=== PATIENT | male | born 1995 | race Caucasian/White ===

== ENCOUNTER 2017-10-27 15:28 | Emergency (ER) | payer OTHER ==
[~2017-10-27] VITALS: Ht 170.2 cm; Wt 68.9 kg
== END 2017-10-27 18:05 | disposition home or self-care (01) ==
LOC: ER 15:28
DX: S61.210A Laceration without foreign body of right index finger without damage to nail, initial encounter (principal); W26.0XXA Contact with knife, initial encounter; Y93.89 Activity, other specified; Y92.098 Other place in other non-institutional residence as the place of occurrence of the external cause; Y99.8 Other external cause status

== ENCOUNTER → 2018-12-10 | Emergency (ER) | payer OTHER ==
[~2018-12-10] VITALS: Ht 170.2 cm; Wt 65.8 kg
[~2018-12-10] MED LIST: PEPCID40 MG PO; ZOFRAN4 MG PO
== END | disposition home or self-care (01) ==
LOC: ER 23:15
DX: K52.89 Other specified noninfective gastroenteritis and colitis (principal)

== ENCOUNTER 2018-12-24 20:05 | Emergency (ER) | payer OTHER ==
[~2018-12-24] VITALS: Ht 170.2 cm; Wt 69.4 kg
[~2018-12-24 20:05] MED LIST changes: -KETO10TA2 PO
[2018-12-25] MEDS ORDERED: KETO10TA2 PO (03:26)
== END 2018-12-25 03:30 | disposition home or self-care (01) ==
LOC: ER 20:05
DX: N21.1 Calculus in urethra (principal); R10.31 Right lower quadrant pain

== ENCOUNTER → 2018-12-24 | Emergency (ER) | payer OTHER ==
[~2018-12-24] VITALS: Ht 170.2 cm; Wt 69.9 kg
[~2018-12-24] MED LIST changes: +KETO10TA2 PO
== END | disposition home or self-care (01) ==
LOC: ER 10:12
DX: K52.9 Noninfective gastroenteritis and colitis, unspecified (principal); E86.0 Dehydration; R10.84 Generalized abdominal pain

== ENCOUNTER 2019-03-11 21:30 | Emergency (ER) | payer OTHER ==
[~2019-03-11] VITALS: Ht 170.2 cm; Wt 65.8 kg
[~2019-03-11 21:30] MED LIST changes: +KETO10TA2 PO
== END 2019-03-12 02:53 | disposition home or self-care (01) ==
LOC: ER 21:30
DX: B34.9 Viral infection, unspecified (principal); K52.9 Noninfective gastroenteritis and colitis, unspecified

== ENCOUNTER 2019-12-29 21:34 | Emergency (ER) | payer OTHER ==
[~2019-12-29] VITALS: Ht 172.7 cm; Wt 67.6 kg
[2019-12-29] MEDS ORDERED: NORFLEX100MG PO (22:51)
[2019-12-29] MEDS ORDERED: DICLOFENAC SODI75 MG PO (22:51)
== END 2019-12-29 23:12 | disposition home or self-care (01) ==
LOC: ER 21:34
DX: S30.0XXA Contusion of lower back and pelvis, initial encounter (principal); M54.5 Low back pain; W18.09XA Striking against other object with subsequent fall, initial encounter; Y93.89 Activity, other specified; Y92.69 Other specified industrial and construction area as the place of occurrence of the external cause; Y99.8 Other external cause status

== ENCOUNTER 2021-02-03 22:43 | Emergency (ER) | payer OTHER ==
[~2021-02-03] VITALS: Ht 170.2 cm; Wt 69.9 kg
[~2021-02-03 22:43] MED LIST changes: +DICLOFENAC SODI75 MG PO; +NORFLEX100MG PO
[2021-02-04] MEDS ORDERED: PROTONIX40 MG PO (01:03)
[2021-02-04] MEDS ORDERED: PEPCID40 MG PO (01:03)
== END 2021-02-04 01:15 | disposition home or self-care (01) ==
LOC: ER 22:43
DX: R10.9 Unspecified abdominal pain (principal); K29.70 Gastritis, unspecified, without bleeding; R11.0 Nausea

== ENCOUNTER 2022-11-27 08:53 | Emergency (ER) | payer OTHER ==
[~2022-11-27] VITALS: Ht 170.2 cm; Wt 69.9 kg
[~2022-11-27 08:53] MED LIST changes: +PROTONIX40 MG PO
== END 2022-11-27 12:27 | disposition home or self-care (01) ==
LOC: ER 08:53
DX: K52.9 Noninfective gastroenteritis and colitis, unspecified (principal); R11.10 Vomiting, unspecified; A08.8 Other specified intestinal infections

== ENCOUNTER 2022-12-29 12:16 | Emergency (ER) | payer OTHER ==
[~2022-12-29] VITALS: Ht 170.2 cm; Wt 69.9 kg
[2022-12-29] MEDS ORDERED: DICLOFENAC SODI75 MG PO (15:06)
== END 2022-12-29 15:25 | disposition home or self-care (01) ==
LOC: ER 12:16
DX: S43.401A Unspecified sprain of right shoulder joint, initial encounter (principal); W19.XXXA Unspecified fall, initial encounter; Y93.9 Activity, unspecified; Y92.89 Other specified places as the place of occurrence of the external cause; Y99.9 Unspecified external cause status